=== PATIENT | female | born 1935 | race Caucasian/White ===

== ENCOUNTER 2017-09-03 12:24 | Inpatient (IN) | payer OTHER ==
[~2017-09-03] VITALS: Ht 160 cm; Wt 74.3 kg
[~2017-09-03 12:24] MED LIST: CELEXA20 MG PO; FEOSOL325 MG PO; FERROUS SULFAT325 MG PO; FUROSEMIDE40 MG PO; GLUCOPHAGE500 MG PO; K-DUR20 MEQ PO; LASIX40 MG PO; LEVOTHROID75 MCG PO; LISINOPRIL-HCT1 EAC3 PO; LOPRESSOR50 MG PO; NORCO 5/3251 TABLET PO; NORVASC5 MG PO; PERI-COLACE TA1 EACH PO; POTASSIUM CHLO20 ME2 PO; PRINZIDE 10-121 EACH PO; PROAIR HFA8.5 GM IH; RANITIDINE HCL150 MG PO; SYNTHROID75 MCG PO; TOFRANIL50 MG PO; TOPROL XL50 MG PO; TRAMADOL HCL50 MG PO; TYLENOL EXTRA500 MG PO; ULTRAM50 MG PO; VICODIN,LORT1 TABLET PO; ZOCOR10 MG PO
[2017-09-03 13:52] LABS: APPEARANCE SL.HAZY ((CLEAR)); BILIRUBIN NEGATIVE; BLOOD NEGATIVE; COLOR YELLOW ((YELLOW)); GLUCOSE (STRIP) NEGATIVE; KETONES NEGATIVE; LEUKOCYTES MODERATE; NITRITE POSITIVE; PROTEIN (STRIP) NEGATIVE; SPECIFIC GRAVITY 1.014 (1.000-1.030); UROBILINOGEN 0.2 MG/DL (0.2-1.0)
[2017-09-03 13:55] LABS: BASOPHIL (%) 0.7 % (0-1); BASOPHIL COUNT 0.1 K/uL (0-0.1); EOSINOPHIL COUNT 0.5 K/uL (0-0.3); HEMATOCRIT 36.3 % (36.0-46.0); HEMOGLOBIN 11.6 G/DL (11.9-15.5); IMMATURE GRANULOCYTE (%) 0.3 % (0.0-0.7); LYMPHOCYTE (%) 16.2 % (15-42); LYMPHOCYTE COUNT 1.6 K/uL (1.0-2.8); MCH 29.1 PG (29.0-34.0); MCV 91.2 FL (83-99); MONOCYTE (%) 9.5 % (3-12); MONOCYTE COUNT 0.9 K/uL (0-0.8); NEUTROPHIL (%) 68.3 % (45-76); NEUTROPHIL COUNT 6.6 K/uL (1.8-6.4); PLATELET COUNT 259 K/uL (156-360); RBC DIS.WIDTH-CV 13.3 % (11.8-14.6); RBC DIS.WIDTH-SD 44.8 % (39-53); RED BLOOD COUNT 3.98 M/uL (3.80-5.20); WHITE BLOOD COUNT 9.7 K/uL (4.1-10.2)
[2017-09-03 13:57] LABS: BACTERIA 2+ /HPF; EPITHELIAL CELLS RARE /HPF; HYALINE CASTS 0-5 /LPF; MUCUS TRACE /LPF; RED BLOOD CELLS 0-5 /HPF (0-5); WHITE BLOOD CELLS TNTC /HPF (0-5)
[2017-09-03 14:04] LABS: ALBUMIN 4.1 g/dL (3.2-4.8)
[2017-09-03 14:05] LABS: CHLORIDE 108 mEq/L (99-109); POTASSIUM 4.7 mEq/L (3.7-5.4); SODIUM 139 mEq/L (136-147)
[2017-09-03 14:07] LABS: GLUCOSE 94 mg/dL (70-99); TOTAL PROTEIN 7.5 g/dL (6.4-8.3)
[2017-09-03 14:09] LABS: TOTAL BILIRUBIN 0.6 mg/dL (0.0-1.0)
[2017-09-03 14:10] LABS: ALKALINE PHOSPHATASE 131 IU/L (3-129)
[2017-09-03 14:11] LABS: CREATININE 2.8 mg/dL (0.6-1.3); GFR ESTIMATE (CALCULATED) 17 mL/min/
[2017-09-03 14:12] LABS: AST (GOT) 17 IU/L (2-34); UREA NITROGEN (BUN) 53 mg/dL (9-23)
[2017-09-03 14:13] LABS: DIRECT BILIRUBIN 0.2 mg/dL (0.0-0.3)
[2017-09-03 14:14] LABS: ALT (GPT) 25 IU/L (3-49); LIPASE 38 U/L (1.0-51.0)
[2017-09-03] MEDS ORDERED: FUROSEMIDE20 MG PO (19:08)
[2017-09-03] MEDS ORDERED: KENALOG,ARISTOC15 G3 TP (19:10)
[2017-09-04 06:49] LABS: BASOPHIL (%) 0.4 % (0-1); EOSINOPHIL (%) 4.6 % (0-5); EOSINOPHIL COUNT 0.2 K/uL (0-0.3); HEMATOCRIT 33.3 % (36.0-46.0); HEMOGLOBIN 10.8 G/DL (11.9-15.5); IMMATURE GRANULOCYTE (%) 0.4 % (0.0-0.7); LYMPHOCYTE (%) 19.8 % (15-42); MCH 29.3 PG (29.0-34.0); MCHC 32.4 G/DL (30.0-36.0); MCV 90.2 FL (83-99); MONOCYTE (%) 10.9 % (3-12); MONOCYTE COUNT 0.6 K/uL (0-0.8); NEUTROPHIL (%) 63.9 % (45-76); NEUTROPHIL COUNT 3.2 K/uL (1.8-6.4); PLATELET COUNT 190 K/uL (156-360); RBC DIS.WIDTH-CV 13.1 % (11.8-14.6); RBC DIS.WIDTH-SD 42.9 % (39-53); RED BLOOD COUNT 3.69 M/uL (3.80-5.20); WHITE BLOOD COUNT 5.1 K/uL (4.1-10.2)
[2017-09-04 07:24] LABS: CHLORIDE 111 MEQ/L (99-109); GFR ESTIMATE (CALCULATED) 22 mL/min/; GLUCOSE 88 mg/dL (70-99); POTASSIUM 4.7 MEQ/L (3.7-5.4); SODIUM 141 MEQ/L (136-147); UREA NITROGEN (BUN) 41 mg/dL (9-23)
[2017-09-04 07:30] LABS: CREATININE 2.3 MG/DL (0.6-1.3)
[2017-09-04 12:24] LABS: IMM.RETIC FRACTION 9.4 % (3-19); RETIC HGB EQUIVALENT 35.2 (28-36); RETICULOCYTE COUNT 1.5 % (0.5-1.8)
[2017-09-04 12:45] LABS: IRON 168 MCG/DL (35-150); TRANSFERRIN (TIBC) 204.8 mg/dL (215-380)
[2017-09-04 12:57] LABS: TRANSFERRIN SATUR. 82 % (20-55)
[2017-09-04 12:59] LABS: FERRITIN 17 NG/ML (10-291)
[2017-09-04 13:31] VITALS: BP 139/73
[2017-09-04 16:10] VITALS: BP 131/60
[2017-09-05 00:06] VITALS: BP 158/72
[2017-09-05 06:35] LABS: BASOPHIL (%) 0.6 % (0-1); EOSINOPHIL (%) 3.9 % (0-5); EOSINOPHIL COUNT 0.2 K/uL (0-0.3); HEMATOCRIT 31.8 % (36.0-46.0); HEMOGLOBIN 10.3 G/DL (11.9-15.5); IMMATURE GRANULOCYTE (%) 0.2 % (0.0-0.7); LYMPHOCYTE (%) 25.1 % (15-42); LYMPHOCYTE COUNT 1.2 K/uL (1.0-2.8); MCH 28.8 PG (29.0-34.0); MCHC 32.4 G/DL (30.0-36.0); MCV 88.8 FL (83-99); MONOCYTE (%) 9.7 % (3-12); MONOCYTE COUNT 0.5 K/uL (0-0.8); NEUTROPHIL (%) 60.5 % (45-76); NEUTROPHIL COUNT 2.9 K/uL (1.8-6.4); PLATELET COUNT 190 K/uL (156-360); RBC DIS.WIDTH-CV 12.9 % (11.8-14.6); RBC DIS.WIDTH-SD 42.3 % (39-53); RED BLOOD COUNT 3.58 M/uL (3.80-5.20); WHITE BLOOD COUNT 4.8 K/uL (4.1-10.2)
[2017-09-05 06:51] LABS: ALBUMIN 3.4 G/DL (3.2-4.8); ALKALINE PHOSPHATASE 107 IU/L (3-129); ALT (GPT) 14 IU/L (3-49); AST (GOT) 12 IU/L (2-34); CHLORIDE 113 MEQ/L (99-109); CREATININE 2.3 MG/DL (0.6-1.3); GFR ESTIMATE (CALCULATED) 22 mL/min/; GLUCOSE 86 mg/dL (70-99); POTASSIUM 4.3 MEQ/L (3.7-5.4); SODIUM 144 MEQ/L (136-147); TOTAL BILIRUBIN 0.5 MG/DL (0.0-1.0); UREA NITROGEN (BUN) 32 mg/dL (9-23)
[2017-09-05 06:55] VITALS: BP 135/64
[2017-09-05 11:20] VITALS: BP 143/65
[2017-09-05] MEDS ORDERED: CIPRO250 MG PO (12:31)
== END 2017-09-05 13:20 | disposition home health service (06) | DRG 690 ==
LOC: EME 12:24 → EDOF 17:50 → ENRESERV 17:53 → 5EAST 09-04 13:06 → ENPENDDIS 09-05 → EDPENDDISTM 09-05 13:15 → 5EAST 09-05 13:20
PROVIDERS: Hospitalist; Physician Assistant
DX: N12 Tubulo-interstitial nephritis, not specified as acute or chronic (principal); N17.9 Acute kidney failure, unspecified; B96.20 Unspecified Escherichia coli [E. coli] as the cause of diseases classified elsewhere; E86.0 Dehydration; I13.0 Hypertensive heart and chronic kidney disease with heart failure and stage 1 through stage 4 chronic kidney disease, or unspecified chronic kidney disease; I50.22 Chronic systolic (congestive) heart failure; N18.3 Chronic kidney disease, stage 3 (moderate); E11.22 Type 2 diabetes mellitus with diabetic chronic kidney disease; E78.5 Hyperlipidemia, unspecified; K21.9 Gastro-esophageal reflux disease without esophagitis; E03.9 Hypothyroidism, unspecified; F32.9 Major depressive disorder, single episode, unspecified; G89.29 Other chronic pain; D64.9 Anemia, unspecified; J45.909 Unspecified asthma, uncomplicated; Z85.038 Personal history of other malignant neoplasm of large intestine; I25.2 Old myocardial infarction
CPT/HCPCS: 71046; 74176; 76705; 80048; 80053; 80076; 81003; 82607; 82728; 82746; 82948; 83540; 83605; 83690; 84466; 85025; 85046; 87040; 87077; 87086; 87186; 99202; 99281; 99285; J0696; J1644; J3010; J7030